=== PATIENT | male | born 1975 | race Caucasian/White ===

== ENCOUNTER 2016-12-01 04:00 | Emergency (ER) | payer BC ==
[2016-12-01 04:06] VITALS: TEMP 97.8
[2016-12-01 04:09] VITALS: BMI 29.0
[2016-12-01 04:37] LABS: AUTOMATED BASOPHIL 0.4 % (0-2); AUTOMATED EOSINOPHIL 0.3 % (0-5); AUTOMATED MONOCYTE 3.2 % (3-10); AUTOMATED NEUTROPHIL 70.1 % (45-76); MPV 8.7 fL (7.4-10.4)
--- NOTE | 2016-12-01 04:38 | EDPRACDOC ---
- General Information Chief Complaint: Generalized Weakness Stated Complaint: WEAKNESS/DIZZINESS/DIARRHEA Time Seen by Provider: 12/01/16 04:17 Information Source: Patient Home Medications: Home Medications Oxycodone HCl/Acetaminophen [Percocet 10-325 mg Tablet] 1 each PO Q6 03/11/16 Topiramate [Topamax] 100 mg PO BID 12/01/16 Allergies/Adverse Reactions: Allergies Allergy/AdvReac Type Severity Reaction Status Date / Time pregabalin [From Lyrica] Allergy Hives* Verified 12/01/16 04:09 - History of Present Illness Onset: 299 HPI: PT PRESENTS WITH EPISODE OF PALPITATIONS LIKE PRIOR A.FIB. IT RESOLVED PRIOR TO EMS ARRIVAL AFTER THE PATIENT GAVE HIMSELF A PRECORDIAL THUMB. Relevant History: Reports: Arrhythmia (ATRIAL FIBRILLATION - PAROXYSMAL) Pulse is: Irregular, Rapid Worsens with: Reports: Nothing Associated signs & symptoms: Denies: Chest pain ED Past Medical History - History Reviewed Yes Nurses notes reviewed and agree except as marked - Patient Medical History Cardiac History: Reports: Atrial Fibrillation. Denies: Hypertension, Hypercholesterolemia Musculoskeletal History: Reports: Arthritis (degenerative disc disease, on narcotic pain med) Psychological History: Denies: Depression, Substance Use Disorder Surgical History: Reports: Appendectomy, Other (3 back surgeries, 2 neck surgeries, carpal tunnel surgery) - Family Medical History Reports: Hypertension, Diabetes (Mother), Cancer (prostate), Cardiac Disorders ( Father: MIs, at 52yo. PGF: [place], at 62yo.). Denies: Stroke - Social Medical History Smoking Status: Heavy tobacco smoker (5 or more cigarettes/day or daily pipe/ cigar) Social History: Denies: Substance Use Disorder Lives In: Home EDM Review of Systems - Review of Systems ROS Negative Except as Marked: Yes All systems reviewed and were negative except as marked Constitutional: Fatigue, Weakness. negative: Fever Cardiovascular: Palpitations Gastrointestinal: Diarrhea Neurological: Dizziness - Physical Exam Constitutional: Alert Oriented to: Time, Person, Place Last recorded Vital Signs: Last Vital Signs Temp 97.8 F 12/01/16 04:05 Pulse 82 12/01/16 04:05 Resp 20 12/01/16 04:05 BP 134/81 12/01/16 04:05 Pulse Ox 96 12/01/16 04:05 Oxygen Pulse Oxygen Saturation 96 O2 Device Oxygen Flow Rate Fraction of Inspired Oxygen ( FIO2) - HEENT Head: negative: Deformity, Laceration Eye Exam: negative: Conjunctival Injection, Pale Conjunctiva Oropharynx: negative: Membranes Dry Nose: negative: Congestion, Discharge Neck: negative: Limited ROM - Respiratory/Cardiovascular Respiratory: Normal - CTA. negative: Accessory Muscle Use, Diminished, Tachypnea Cardiovascular: negative: Bradycardia, Tachycardia, Irregular - Musculoskeletal Extremities: Radial Pulse (PALPABLE) - Integumentary Skin: Warm, Dry. negative: Rash - Neurologic Memory Impaired: Normal Motor Function: Normal Mood Description: Anxious, Appropriate Thought: Coherent Perception: Normal - Results 12/01/16 04:25 12/01/16 04:25 - EKG EKG #1 Initial EKG Time: 04:10 -: Yes EKG interpreted by me Rate: bpm: 77 [place]: Normal Rhythm: NSR Block: IVCD ST: Nonsp Decision Time to Discharge: 06:19 - Departure Yes I personally saw and evaluated the patient. Disposition: Home Condition: Stable Final Diagnosis: Palpitations Instructions: Palpitations (ED) Education/Counseling Given To: Patient Education/Counseling Given Regarding: Diagnosis, Treatment, Prognosis, Follow Up Referrals: Caleb Miranda MD [Primary Care Provider] - Call for Appointment
[2016-12-01] MEDS ORDERED: NS 1,000 ML IV ONE (04:44)
[2016-12-01 04:45] LABS: BLOOD UREA NITROGEN 16 MG/DL (9-20); CALCIUM 9.5 MG/DL (8.4-10.2); CALCULATED OSMOLALITY 276 MOs/Kg (270-290); CHLORIDE 107 mEq/L (98-107); GLUCOSE 98 MG/DL (70-99); PARTIAL THROMB. TIME 22.6 SEC (22-35); SODIUM LEVEL 143 mEq/L (137-146); TOTAL PROTEIN 6.9 G/DL (6.3-8.2)
[2016-12-01 05:02] LABS: FREE T3 4.25 pg/mL (2.77-5.27); FREE T4 1.22 ng/dL (0.78-2.19)
[2016-12-01 05:15] LABS: hTSH 2.87 uIU/mL (0.5-4.67)
--- NOTE | 2016-12-01 05:31 | DIRPT ---
CLINICAL DATA: Acute onset of generalized weakness, diarrhea, dizziness, visual changes, headache, cough and palpitations. Initial encounter. EXAM: CHEST 2 VIEW COMPARISON: Chest radiograph performed 03/11/2016 FINDINGS: The lungs are well-aerated. Pulmonary vascularity is at the upper limits of normal. There is no evidence of focal opacification, pleural effusion or pneumothorax. The heart is normal in size; the mediastinal contour is within normal limits. No acute osseous abnormalities are seen. IMPRESSION: No acute cardiopulmonary process seen. Electronically Signed By: Chilo Blackwell M.D. On: 12/01/2016 05:29
[2016-12-01 06:13] VITALS: PULSE 86
[2016-12-01 06:30] VITALS: BP 127/82
== END 2016-12-01 06:28 | disposition home or self-care (01) ==
LOC: ED 04:00
DX: R00.2 Palpitations (principal)
CPT/HCPCS: 36415; 71020; 80053; 84439; 84443; 84481; 84484; 85025; 85379; 85610; 85730; 93005; 96360; 99284